=== PATIENT | female | born 1940 | race Caucasian/White ===

== ENCOUNTER 2021-08-24 12:45 | Observation (INO) | payer OTHER, SELFPAY ==
[2021-08-24] VITALS (10 sets, daily range): BP systolic 132–179; BP diastolic 53–74; PULSE 68–86; RESP 14–18; TEMP 36.1–36.8; O2SAT 95–98; BMI 29.0; BMI 28.2
--- NOTE | 2021-08-24 12:58 | EDS_ITS ---
HPI History of Present Illness Chief Complaint: Syncope Detail of Chief Complaint: Syncopal eating breakfast and lunch Informant: patient Onset/Context/Timing Onset: Today Context: Sudden Onset Timing: Intermittent Quality: Syncope with collapse Location: Place of employment Current Severity: Gone Maximum Severity: Patient had no prodrome or symptoms Relieved by: Nothing/not applicable Associated Symptoms Associated Symptoms: None Narrative Narrative: Patient is a healthy 80-year-old woman who was at work. She was eating breakfast this morning at work. She was in a seated position. She passed out. She denied chest pain, shortness of breath, nausea or diaphoresis. She denies black or maroon-colored stool. Patient states she sat to eat lunch. While eating lunch she passed out. Patient presently has no symptoms. She has no complaints. Prior similar symptoms: No Recent Illness/Hospitalization: No PFSH PFS Medical History (Updated 08/24/21 @ 14:[address] Hu Spears MD) Hypertension Medical History no medical history no medical history Allergy/AdvReac Type Severity Reaction Status Date / Time No Known Allergies Allergy Verified 08/24/21 12:48 Social History (Updated 08/24/21 @ 13:[address] Hu Spears MD) household members: other Smoking Status: Never smoker alcohol intake: never substance use type: does not use ROS ROS ED Constitutional Constitutional ED: Denies chills, fever(s), subjective, sweats or weight loss Eyes Eyes: Denies blurry vision, change in vision or diplopia ENT ENT ED: Denies ear pain, rhinorrhea or sore throat Cardiovascular Cardiovascular: Denies chest pain, palpitations or racing heartbeat Respiratory/Chest Respiratory/Chest: Denies cough, dyspnea or dyspnea on exertion Gastrointestinal Gastrointestinal: Denies abdominal pain, constipation, diarrhea, melena, nausea or vomiting Genitourinary Genitourinary ED: Denies dysuria, hematuria or urinary frequency Musculoskeletal Musculoskeletal: Denies arthralgias, back pain, myalgias or neck pain Integumentary Denies rash Neurologic Neurologic: Denies headache(s), paresthesias or weakness Psychiatric Psychiatric: Denies anxiety or depression Endocrine Endocrinology: Denies polydipsia, polyphagia or polyuria Hematologic/Lymphatic Hematologic/Lymphatic: Denies anemia, easy bleeding or easy bruising EXAM Physical Exam Const Vital Signs: 08/24/21 12:45 08/24/21 12:50 Temperature 98.1 F Temperature Source Oral Pulse Rate 68 69 Respiratory Rate 16 16 Blood Pressure 158/57 H 157/59 H Blood Pressure Mean 90 91 Pulse Ox 96 95 Oxygen Delivery Method Room Air Room Air Positive well nourished, well developed and obese General Appearance ED: well developed and NAD; Negative for cyanotic, diaphoretic or pallor Nutritional Appearance: obese HEENT Reports TM's clear and moist mucous membranes HEENT Narrative: Nares patent. Uvula midline. No angioedema. No erythema or exudate. Negative for trauma or tenderness Tympanic Membrane ED: Yes TM's clear Eyes PERRL and EOMs intact bilaterally General Eye ED: Negative for pale conjunctiva or scleral icterus Neck no lymphadenopathy, supple and no JVD Chest Wall inspection of chest normal and palpation of chest normal Resp normal respiratory effort and clear to auscultation bilaterally Cardio regular rate, regular rhythm, S1 normal heart sound, S2 normal heart sound and no murmurs GI normal to inspection, nondistended, normoactive bowel sounds, non-tender, non- distended and no masses Palpation: soft Back/Spine no CVA tenderness Cervical Spine: Negative for cervical spine tenderness Thoracic Spine / Upper Back: Negative for thoracic spinal tenderness or paraspinal muscle tenderness Extremity normal to inspection General Extremety ED: Negative for edema or tenderness General Extremity: Negative for edema Neuro oriented x3, CN's II-XII intact bilaterally and no sensory deficits noted Sensorium / Orientation: alert Motor Exam: strength 5/5 throughout Psych mental status grossly normal Skin no rashes or lesions noted and no wounds General Skin Exam: Negative for elasticity normal, jaundice or pallor MDM MDM MDM Narrative Medical decision making narrative: Ectopy unknown etiology. Will obtain EKG and appropriate blood work. Differential would be vasovagal, GI bleed, dysrhythmia, doubt MT. Doubt pneumothorax. Doubt pulmonary embolus Case was discussed with Dr. James Mora. Will discuss case with Dr. Villareal determine if patient should be monitored in-house versus Holter monitor. Case was discussed with Dr. Pierre Hansen. He recommends admission since she had to 6 episodes today. Lab Data Attestation: I reviewed the patient's lab results. Lab results narrative: CBC is unremarkable. Comprehensive metabolic panel is marked for creatinine of 1.26 with a GFR 44. First troponin is 4. 2-hour troponin is pending. Labs: Laboratory Results - last 24 hr 08/24/21 08/24/21 13:00 13:00 WBC 7.9 RBC 4.15 L Hgb 12.2 Hct 38.0 MCV 91.6 MCH 29.4 MCHC 32.1 RDW Std Deviation 45.6 H RDW Coeff of Madeline 13.5 Plt Count 238 MPV 10.0 Immature Gran % (Auto) 0.300 Neut % (Auto) 75.2 H Lymph % (Auto) 16.5 L [place] % (Auto) 7.4 Eos % (Auto) 0.3 Baso % (Auto) 0.3 Absolute Neuts (auto) 5.9 Absolute Lymphs (auto) 1.30 Nucleated RBC % 0 Sodium 140 Potassium 4.4 Chloride 109 H Carbon Dioxide 26.0 Anion Gap 5 BUN 33 H Creatinine 1.26 H Estim Creat Clear Calc 31.26 Est GFR (MDRD) Af Amer 53 L Est GFR (MDRD) Non-Af 44 L BUN/Creatinine Ratio 26.2 H Glucose 118 H Calcium 8.8 Total Bilirubin 0.40 AST 28 ALT 20 Alkaline Phosphatase 97 Troponin I High Sens 4 Total Protein 7.1 Albumin 3.6 Globulin 3.5 Albumin/Globulin Ratio 1.0 EKG Initial EKG: Attestation: I personally reviewed and interpreted this EKG as follows: Interpretation: Sinus Rhythm (The EKG is normal. Rate is 76. W[place] interval is 154 ms. Cures duration 82 ms. QT duration 418 ms. [place] is normal.) Discharge Plan Triage Chief Complaint: Syncope ED Provider: Hu Spears Dx/Rx/DC Orders Clinical Impression: Syncope and collapse, History of hypertension Primary Care Provider: Sushma Mas Referrals: Sushma Mas, [employer] [Primary Care Provider] - Disposition Disposition: Acute Care [facility]
--- NOTE | 2021-08-24 13:16 | EKG12_ITS ---
Test Reason : SYNCOPE Blood Pressure : / mmHG Vent. Rate : 069 BPM Atrial Rate : 069 BPM P-R Int : 164 ms QRS Dur : 082 ms QT Int : 418 ms P-R-T Axes : 050 012 -05 degrees QTc Int : 447 ms Normal sinus rhythm Normal ECG Confirmed by EVELYN GUTIERREZ, LISY ([id number]), editor continuity and script MYRTLE CHIN ([id number]) on 08/25/2021 11:09:56 AM Referred By: SAMARA Confirmed By:LISY RIVAS MD
[2021-08-24 13:20] LABS: Absolute Neutrophil Count 5.9 X10^3/uL (2.0-7.7); Basophil# 0.02 X10^3/uL; Basophil% 0.3 % (0-1); Eosinophil# 0.02 X10^3/uL; Eosinophils% 0.3 % (0-5); Hemoglobin 12.2 g/dL (12.0-15.0); Lymphocyte % 16.5 % (19-41); Mean Corp Hgb Conc 32.1 g/dL (32-36); Mean Corpuscular Hgb 29.4 pg (27.0-32.0); Mean Corpuscular Volume 91.6 fL (81-99); Monocyte# 0.58 X10^3/uL; Monocyte% 7.4 % (0-10); NRBC Flagged by Analyzer 0 % (0-5); Neutrophil # 5.93 X10^3/uL (2.7-7.7); Neutrophil % 75.2 % (47-70); Platelet Count 238 K/mm3 (150-450); RBC Distribution Width CV 13.5 % (11.6-14.6); RBC Distribution Width SD 45.6 fl (35.1-43.9); Red Blood Count 4.15 M/mm3 (4.2-5.4); White Blood Count 7.9 K/mm3 (4.4-11.0)
[2021-08-24 13:32] LABS: AST(SGOT) 28 U/L (15-37); Alanine Aminotransfer ALT/SGPT 20 U/L (13-56); Albumin, Serum 3.6 g/dL (3.2-5.0); Alkaline Phosphatase 97 U/L (45-117); Anion Gap 5 (5-15); BUN 33 mg/dL (7-18); BUN/Creat Ratio 26.2 RATIO (10-20); Calcium,Total 8.8 mg/dL (8.5-10.1); Chloride 109 mmol/L (98-107); Creatinine, Serum 1.26 mg/dL (0.55-1.02); EST Glomerular Filtration Rate 44 mL/min (>60); Est Glom Filt Rate - Afr Amer 53 mL/min (>60); Estimated Creatinine Clearance 31.26 ml/min; Globulin 3.5 g/dL (2.2-4.2); Glucose 118 mg/dL (74-106); Potassium 4.4 mmol/L (3.5-5.1); Protein, Total 7.1 g/dL (6.4-8.2); Sodium Level 140 mmol/L (136-145); Troponin-I HS 4 pg/mL (3.0-54.0)
--- NOTE | 2021-08-24 15:13 | HP.PCM.HOS_ITS ---
HPI - General General Date of Admission: 08/24/21 Date of Service: 08/24/21 Chief Complaint: syncope HPI Narrative MYRTLE FERMIN, is a 80 F who presents with syncopal episodes. Patient was eating breakfast around 7 AM and then had a single episode where she went completely out but came to. Then eating lunch again she had another syncopal episode. At that point time patient sought attention. Work-up in the emergency room was unremarkable. The emergency room reached out to me about evaluation. Recommended Holter monitor. I then reached out to cardiology who advised admission given that patient had 2 unprovoked syncopal attacks. Patient never had any symptoms of this before. No bowel or bladder incontinence. No prodrome. [facility] Medical History Hypertension Medical History no medical history no medical history Home Medications amlodipine 08/24/21 [History Last Taken Unknown] lisinopril 08/24/21 [History Last Taken Unknown] metoprolol tartrate 08/24/21 [History Last Taken Unknown] mirtazapine mg 08/24/21 [History Last Taken Unknown] olanzapine mg 08/24/21 [History Last Taken Unknown] Allergy/AdvReac Type Severity Reaction Status Date / Time No Known Allergies Allergy Verified 08/24/21 12:48 Social History household members: other Smoking Status: Never smoker alcohol intake: never substance use type: does not use ROS ROS Narrative All review of systems were negative except as mentioned above in the history of present illness and the other review of systems. Vital Signs Vital Signs Vital Signs: 08/24/21 12:45 08/24/21 12:50 08/24/21 13:00 Temperature 36.7 C Temperature Source Oral Pulse Rate 68 69 Respiratory Rate 16 16 Respiratory Effort Normal Non-Labored Respiratory Pattern Normal Blood Pressure 158/57 H 157/59 H Blood Pressure Mean 90 91 Pulse Ox 96 95 Oxygen Delivery Method Room Air Room Air 08/24/21 14:44 Temperature 36.7 C Temperature Source Oral Pulse Rate 79 Respiratory Rate 14 Respiratory Effort Respiratory Pattern Blood Pressure 168/66 H Blood Pressure Mean 100 Pulse Ox 97 Oxygen Delivery Method Room Air Weight Weight: 76.9 kg Body Mass Index (BMI) 29.0 Physical Exam Const alert General Appearance: cooperative HEENT normocephalic and head/scalp atraumatic Neck no lymphadenopathy Resp normal respiratory effort, no retractions, no use of accessory muscles and clear to auscultation bilaterally Cardio regular rate, regular rhythm, S1 normal heart sound and S2 normal heart sound GI normal to inspection, nondistended, normoactive bowel sounds, soft to palpation, non-tender and non-distended Extremity normal to inspection Skin no rashes or lesions noted Neuro oriented x3, CN's II-XII intact bilaterally, moves all extremities and no focal motor deficits Sensorium / Orientation: awake and alert Motor Exam: strength 5/5 throughout Results Lab / Micro Data Attestation: I reviewed the patient's lab results. Result Diagrams: 08/24/21 13:00 08/24/21 13:00 Labs: Laboratory Results - last 24 hr 08/24/21 13:00: WBC 7.9, RBC 4.15 L, Hgb 12.2, Hct 38.0, MCV 91.6, MCH 29.4, MCHC 32.1, RDW Std Deviation 45.6 H, RDW Coeff of Madeline 13.5, Plt Count 238, MPV 10.0, Immature Gran % (Auto) 0.300, Neut % (Auto) 75.2 H, Lymph % (Auto) 16.5 L, [place] % (Auto) 7.4, Eos % (Auto) 0.3, Baso % (Auto) 0.3, Absolute Neuts (auto) 5.9, Absolute Lymphs (auto) 1.30, Nucleated RBC % 0 08/24/21 13:00: Sodium 140, Potassium 4.4, Chloride 109 H, Carbon Dioxide 26.0, Anion Gap 5, BUN 33 H, Creatinine 1.26 H, Estim Creat Clear Calc 31.26, Est GFR (MDRD) Af Amer 53 L, Est GFR (MDRD) Non-Af 44 L, BUN/Creatinine Ratio 26.2 H, Glucose 118 H, Calcium 8.8, Total Bilirubin 0.40, AST 28, ALT 20, Alkaline Phosphatase 97, Troponin I High Sens 4, Total Protein 7.1, Albumin 3.6, Globulin 3.5, Albumin/Globulin Ratio 1.0 EKG Initial EKG: Attestation: I personally reviewed and interpreted this EKG as follows: Prior EKG tracings: available for review EKG Rhythm Intrepretation: Sinus Rhythm Assessment & Plan Assessment/Plan (1) Syncope and collapse: PLAN: 1. Syncope * Unprovoked * Favoring vasovagal but cannot rule out arrhythmia at present * Check carotid duplex. Did not hear any bruits but patient did have a duplex performed in 2017 that was negative at that time. * Check echocardiogram * Monitor on telemetry * Cardiology contacted through the emergency room and they will be consulted for any further recommendations 2. Insomnia * Is reported to me by the family that patient takes Zyprexa for insomnia * I told her that I have never heard that is a recommendation for insomnia * Zyprexa will be held because it can cause prolongation of the QT intervals Charges/Coding Visit Charges OBSV E&M: 31771 Initial observation care L2
[2021-08-24 15:23] LABS: Troponin-I HS (w/2H Reflex) 5 pg/mL (3.0-54.0)
--- NOTE | 2021-08-24 15:54 | ECHOD_ITS ---
Reason For Study: Syncope Procedure This was a 2D Doppler, Color Flow transthoracic echocardiogram. Exam performed portable in patient room. Left Ventricle Normal LV size. Moderate concentric left ventricular hypertrophy. Left ventricular systolic function is normal. The estimated ejection fraction is 60 %. Stage 1 diastolic dysfunction. No regional wall motion abnormalities noted. Right Ventricle Normal RV size. Normal systolic function. Atria Normal left atrium. Normal right atrium. Mitral Valve Normal mitral valve. Tricuspid Valve Normal tricuspid valve. Mild tricuspid valve insufficiency. Pulmonary artery systolic pressure is 22 mmHg. Aortic Valve Normal aortic valve. Trisinus/trileaflet aortic valve. Pulmonic Valve Normal pulmonic valve. Great Vessels Normal aortic root. The pulmonary artery is normal size. Normal inferior vena cava. Pericardium/Pleural No pericardial effusion. MMode/2D Measurements & Calculations LVIDd: 3.9 cm IVSd: 1.5 cm Ao root diam: 3.4 cm LVIDs: 2.7 cm LVPWd: 1.4 cm RVDd: 3.3 cm FS: 28.7 % LAV(MOD-bp): 48.3 ml LVAd ap4: 18.9 cm2 SV(MOD-sp4): 30.1 ml LAV(MOD-bp) Indexed: 26.5 ml/m2 LVLd ap4: 6.1 cm LAV(MOD-sp2): 48.3 ml EDV(MOD-sp4): 48.1 ml LAV(MOD-sp4): 47.2 ml EDV(sp4-el): 49.9 ml LVAs ap4: 10.3 cm2 LVLs ap4: 5.1 cm ESV(MOD-sp4): 18.0 ml ESV(sp4-el): 17.6 ml EF(MOD-sp4): 62.6 % EF(sp4-el): 64.6 % SV(sp4-el): 32.2 ml LA A4 area: 17.5 cm2 LA dimension(2D): 4.4 cm RA A4 area: 10.6 cm2 Doppler Measurements & Calculations MV E max fadi: 60.5 cm/sec Lat Peak E' Fadi: 3.7 cm/sec Med Peak E' Fadi: 4.9 cm/sec MV A max fadi: 90.3 cm/sec E/E' lat: 16.4 E/E' med: 12.3 MV E/A: 0.67 Ao V2 max: 126.1 cm/sec LV V1 max: 90.9 cm/sec PA V2 max: 104.0 cm/sec Ao max P.4 mmHg LV V1 max P.3 mmHg Ao V2 mean: 83.0 cm/sec Ao mean P.1 mmHg Ao V2 VTI: 26.5 cm TR max fadi: 238.0 cm/sec TR max P.7 mmHg ECHO/Echo Complete Interpretation Summary Normal LV size. Left ventricular systolic function is normal. The estimated ejection fraction is 60 %. Stage 1 diastolic dysfunction. Moderate concentric left ventricular hypertrophy. Pulmonary artery systolic pressure is 22 mmHg. Ordering Physician: James Butler Referring Physician: Sushma Mas Performed By: Beatris Abel, HOSSEIN, RVT
--- NOTE | 2021-08-24 15:54 | CDU_ITS ---
Reason For Study: syncope Rt. Velocities/BP Lt. Velocities/BP Prox CCA 76.0/14.7 cm/sec. Prox CCA 128.2/27.8 cm/sec. Mid CCA 82.5/17.3 cm/sec. Mid CCA 107.3/26.5 cm/sec. Dist CCA 79.9/18.6 cm/sec. Dist CCA 93.0/23.9 cm/sec. Prox ICA 71.8/13.3 cm/sec. Prox ICA 81.4/22.5 cm/sec. Mid ICA 60.5/20.0 cm/sec. Mid ICA 96.2/27.4 cm/sec. Dist ICA 104.7/30.6 cm/sec. Dist ICA 80.9/24.3 cm/sec. Rt. ICA/CCA = 1.3. Lt. ICA/CCA = .9. Prox ECA 187.2/13.8 cm/sec. Prox ECA 174.0/35.8 cm/sec. Rt. Vert. 97.4/20.6 cm/sec. Right Extracranial There is homogeneous, smooth atherosclerotic plaque noted in the right common carotid artery. There is heterogeneous, irregular atherosclerotic plaque noted in the right internal carotid artery. The right internal carotid artery is very tortuous. There is heterogeneous, irregular atherosclerotic plaque noted in the right external carotid artery. Antegrade flow is noted in the right vertebral artery. Left Extracranial There is intimal thickening but no significant atherosclerotic plaque noted in the left common carotid artery. There is heterogeneous, irregular atherosclerotic plaque noted in the left internal carotid artery. The left internal carotid artery is very tortuous. There is heterogeneous, irregular atherosclerotic plaque noted in the left external carotid artery. Flow could not be demonstrated in the left vertebral artery. Procedure Carotid Duplex 21255. This is a Carotid Duplex examination using B-mode, color flow and specral Doppler. The exam was diagnostic. Exam performed in department. VL/Carotid Duplex Ultrasound Interpretation Summary Irregular calcific plaque at the proximal right internal carotid artery with le ss than 50% stenosis Less than 50% stenosis right external carotid artery Minimal irregular plaque at the proximal left internal carotid artery with less than 50% stenosis Less than 50% stenosis left external carotid artery Patent and antegrade right vertebral artery Flow could not be demonstrated in the left vertebral artery. Findings are similar to her previous examination of February 19, 2017 however f low could be determined in the left vertebral at that setting. Ordering Physician: James Butler Performed By: Ryan Mariee RVT
[2021-08-24 17:05] LABS: Reflex Troponin-HS? (from REC) Y
[2021-08-24 20:07] LABS: Troponin-I HS 6 pg/mL (3.0-54.0)
--- NOTE | 2021-08-24 22:59 | NURSING ---
Daughter called around [phone] to get an update about pt and left a contact number to give a call back. I called the number provided to me twice, but no one answered. Will try to call again in the AM.
[2021-08-25 02:59] VITALS: PULSE 77
[2021-08-25 03:41] VITALS: BP 127/56; PULSE 81; RESP 18; TEMP 36.9; O2SAT 95
[2021-08-25 06:38] VITALS: PULSE 89
--- NOTE | 2021-08-25 07:52 | CON.PCM.CA_ITS ---
Assessment & Plan Assessment/Plan (1) Syncope and collapse: PLAN: Did have an episode of near syncope. It is not clear to me that she did have franky syncope. Her Holter monitor has not demonstrated any abnormalities thus far. Her blood work was suggestive of an elevated BUN and creatinine suggesting that she may have been mildly dehydrated. In addition she is on multiple medical therapy for hypertension. I would recommend an echocardiogram to assess her ventricular function if this is normal then I would suggest a 30-day event monitor. (2) History of hypertension: PLAN: I would like us to make some changes to her antihypertensive medication by reducing her metoprolol to 50 mg twice a day Continue lisinopril 20 mg a day Continue Norvasc 5 mg a day Continue to monitor her blood pressure. Thank you for allowing me to participate in the care of your patient. Please don't hesitate to call if any issues arise. HPI Consult Data Date of Consult: 08/25/21 HPI Narrative HPI Narrative: MYRTLE FERMIN, is a 80 F who presents emergency room after having 2 near syncopal spells. She says that is the first time that this is ever happened to her. The first time she was having breakfast when she thought she was going to pass out. She put her head on the table. She is not sure that she completely passed out. There was no chest pain and no prodrome no paroxysmal nocturnal dyspnea no pedal edema she has not had any long travel. The second time she had gone to work and also she was eating and then it happened again. Once again she had to put her head on the table. She presented to the emergency room was evaluated and her EKG demonstrated sinus rhythm. It was advised that she be admitted. Cardiac enzymes were noted to be normal. She does have a history of hypertension on 3 blood pressure medications. This morning she seems to be doing well. [facility] Medical History Anxiety Depression Hypertension Non-smoker Medical History no medical history Home Medications amlodipine [Norvasc] 5 mg PO DAILY 08/24/21 [History Last Taken Unknown] lisinopril [Zestril] 20 mg PO DAILY 08/24/21 [History Last Taken Unknown] metoprolol tartrate [Lopressor] 100 mg PO BID 08/24/21 [History Last Taken Unknown] mirtazapine [Remeron] 30 mg PO QHS 08/24/21 [History Last Taken 08/23/21] olanzapine [Zyprexa] 2.5 mg PO QHS 08/24/21 [History Last Taken 08/23/21] Allergy/AdvReac Type Severity Reaction Status Date / Time No Known Allergies Allergy Verified 08/24/21 12:48 Social History household members: other Smoking Status: Never smoker alcohol intake: never substance use type: does not use ROS Constitutional Constitutional: Denies fever(s) or weight loss Eyes Eyes: Reports systems reviewed and no addt'l complaints, except as documented ENT HEENT: Reports systems reviewed and no addt'l complaints, except as documented Cardiovascular Cardiovascular: Denies chest pain at rest, chest pain with activity, dyspnea at rest, dyspnea on exertion, edema, palpitations or paroxysmal nocturnal dyspnea Respiratory/Chest Respiratory/Chest: Denies dyspnea on exertion, productive cough, shortness of breath at rest or shortness of breath with exertion Gastrointestinal Gastrointestinal: Denies change in bowel habits, nausea, vomiting or weight changes Genitourinary Genitourinary: Denies difficulty urinating Musculoskeletal Musculoskeletal: Denies joint stiffness or muscle weakness Integumentary Integumentary: Denies lesions Neurologic Neurologic: Denies dizziness or syncope Psychiatric Psychiatric: Denies anxiety Endocrine Endocrinology: Denies excessive sweating or fatigue Hematologic/Lymphatic Hematologic/Lymphatic: Denies anemia Allergic/Immunologic Allergic/Immunologic: Denies seasonal rhinorrhea Physical Exam Const alert, oriented x3 and no apparent distress General Appearance: cooperative HEENT hearing grossly normal bilaterally Head and Scalp: atraumatic Eyes EOMs intact bilaterally Neck General: normal visual inspection Chest inspection of chest normal and palpation of chest normal Resp normal respiratory effort Auscultation: clear to auscultation bilaterally Cardio regular rate, regular rhythm, S1 normal heart sound and S2 normal heart sound Jugular Venous Distention: JVD GI normal to inspection, nondistended, normoactive bowel sounds Extremity normal capillary refill and no pedal edema Peripheral Pulses: Yes pulses 2+ throughout and femoral pulses present Skin no rashes or lesions noted Neuro oriented x3 and CN's II-XII intact bilaterally Psych Appearance: grossly normal and appropriate Risk Stratification Risk Stratification Applicable: No Objective Data Vital Signs: Vital Signs Temp Pulse Resp BP Pulse Ox 98.5 F 89 18 127/56 H 95 08/25/21 03:41 08/25/21 06:38 08/25/21 03:41 08/25/21 03:41 08/25/21 03:41 Oxygen Delivery Method Room Air Weight: 164 lb 7.437 oz Body Mass Index (BMI) 28.2 Lab / Micro Data Result Diagrams: 08/24/21 13:00 08/24/21 13:00 Labs: Laboratory Results - last 24 hr 08/24/21 13:00: WBC 7.9, RBC 4.15 L, Hgb 12.2, Hct 38.0, MCV 91.6, MCH 29.4, MCHC 32.1, RDW Std Deviation 45.6 H, RDW Coeff of Madeline 13.5, Plt Count 238, MPV 10.0, Immature Gran % (Auto) 0.300, Neut % (Auto) 75.2 H, Lymph % (Auto) 16.5 L, [place] % (Auto) 7.4, Eos % (Auto) 0.3, Baso % (Auto) 0.3, Absolute Neuts (auto) 5.9, Absolute Lymphs (auto) 1.30, Nucleated RBC % 0 08/24/21 13:00: Sodium 140, Potassium 4.4, Chloride 109 H, Carbon Dioxide 26.0, Anion Gap 5, BUN 33 H, Creatinine 1.26 H, Estim Creat Clear Calc 31.26, Est GFR (MDRD) Af Amer 53 L, Est GFR (MDRD) Non-Af 44 L, BUN/Creatinine Ratio 26.2 H, Glucose 118 H, Calcium 8.8, Total Bilirubin 0.40, AST 28, ALT 20, Alkaline Phosphatase 97, Troponin I High Sens 4, Total Protein 7.1, Albumin 3.6, Globulin 3.5, Albumin/Globulin Ratio 1.0 08/24/21 15:05: Troponin I High Sens 5 08/24/21 19:25: Troponin I High Sens 6 Cardiology Labs/Tests 08/24/21 13:00: WBC 7.9, RBC 4.15 L, Hgb 12.2, Hct 38.0, MCV 91.6, MCH 29.4, MCHC 32.1, Plt Count 238, MPV 10.0, Immature Gran % (Auto) 0.300, Neut % (Auto) 75.2 H, Lymph % (Auto) 16.5 L, [place] % (Auto) 7.4, Eos % (Auto) 0.3, Baso % (Auto) 0.3, Absolute Neuts (auto) 5.9, Nucleated RBC % 0 08/24/21 13:00: Sodium 140, Potassium 4.4, Chloride 109 H, Carbon Dioxide 26.0, Anion Gap 5, BUN 33 H, Creatinine 1.26 H, Est GFR (MDRD) Af Amer 53 L, Est GFR (MDRD) Non-Af 44 L, BUN/Creatinine Ratio 26.2 H, Glucose 118 H, Calcium 8.8, Total Bilirubin 0.40 Rhythm: EKG: ECHO: Stress Test: Cardiac Cath: PCI: CT Surgery: Holter monitor: EPS: PPM: CXR: Chest CT Scan:
--- NOTE | 2021-08-25 08:25 | PN.HOSP_ITS ---
Subjective Subjective No events overnight. Ate without issues. No further syncope. Objective Data Objective Data Vital Signs: Vital Signs Temp Pulse Resp BP Pulse Ox 36.9 C 89 18 127/56 H 95 08/25/21 03:41 08/25/21 06:38 08/25/21 03:41 08/25/21 03:41 08/25/21 03:41 Oxygen Delivery Method Room Air Weight: 74.6 kg Body Mass Index (BMI) 28.2 Lab / Micro Data Result Diagrams: 08/24/21 13:00 08/24/21 13:00 Labs: Laboratory Results - last 24 hr 08/24/21 13:00: WBC 7.9, RBC 4.15 L, Hgb 12.2, Hct 38.0, MCV 91.6, MCH 29.4, MCHC 32.1, RDW Std Deviation 45.6 H, RDW Coeff of Madeline 13.5, Plt Count 238, MPV 10.0, Immature Gran % (Auto) 0.300, Neut % (Auto) 75.2 H, Lymph % (Auto) 16.5 L, [place] % (Auto) 7.4, Eos % (Auto) 0.3, Baso % (Auto) 0.3, Absolute Neuts (auto) 5.9, Absolute Lymphs (auto) 1.30, Nucleated RBC % 0 08/24/21 13:00: Sodium 140, Potassium 4.4, Chloride 109 H, Carbon Dioxide 26.0, Anion Gap 5, BUN 33 H, Creatinine 1.26 H, Estim Creat Clear Calc 31.26, Est GFR (MDRD) Af Amer 53 L, Est GFR (MDRD) Non-Af 44 L, BUN/Creatinine Ratio 26.2 H, Gl ucose 118 H, Calcium 8.8, Total Bilirubin 0.40, AST 28, ALT 20, Alkaline Phosphatase 97, Troponin I High Sens 4, Total Protein 7.1, Albumin 3.6, Globulin 3.5, Albumin/Globulin Ratio 1.0 08/24/21 15:05: Troponin I High Sens 5 08/24/21 19:25: Troponin I High Sens 6 Physical Exam Const alert and no apparent distress Resp normal respiratory effort, no retractions and no use of accessory muscles Cardio regular rate, regular rhythm, S1 normal heart sound and S2 normal heart sound GI normal to inspection, nondistended, normoactive bowel sounds, soft to palpation, non-tender and non-distended Assessment & Plan Assessment/Plan (1) Syncope and collapse: PLAN: 1. Syncope * Unprovoked * Monitor on telemetry * Cardiology contacted through the emergency room and they will be consulted for any further recommendations * Orthostatic vital +, SBP dropped 179 to 148, but subsequent check was normal. * adjust BP meds: metoprolol 50 BID, then continue lisinopril 20 and amlodipine 5 as previous. * carotid duplex negative * echo pending. 2. Insomnia * Is reported to me by the family that patient takes Zyprexa for insomnia * I told her that I have never heard that is a recommendation for insomnia * Zyprexa will be held because it can cause prolongation of the QT intervals Charges/Coding Visit Charges OBSV E&M: 84087 Subsequent observation care L2
[2021-08-25 09:30] VITALS: BP 133/73; PULSE 81; RESP 18; TEMP 36.9; O2SAT 94
[2021-08-25] MEDS: Lisinopril 20 MG Tablet PO (09:32)
[2021-08-25 09:33] VITALS: PULSE 81
[2021-08-25] MEDS: Metoprolol Tartrate 50 MG Tablet PO (09:33)
[2021-08-25] MEDS: amLODIPine 5 MG Tablet PO (09:33)
--- NOTE | 2021-08-25 13:16 | DCINST_ITS ---
Discharge Instructions Diet Discharge Diet: No restrictions Activity Discharge Activity: Return to Normal Activity Dressing / Incision Call your doctor if you observe: Dizziness and - (unresponsiveness) Follow Up Care Test Results: Test results from this visit will be discussed in further detail at your follow-up appointment, if applicable. Discharge Plan Admission Admit Date/Time: 08/24/21 15:10 Primary Reason for Your Visit: syncope Attending Provider: James Butler Primary Care Provider: Sushma Mas Consulting Providers: Pierre Hansen Discharge Orders/Prescriptions Prescriptions: New metoprolol tartrate 50 mg Tablet 50 mg PO BID Qty: 60 RF: 0 melatonin 5 mg capsule 5 mg PO QHS PRN PRN (Reason: insomnia) Qty: 30 RF: 0 Continued lisinopril [Zestril] 20 mg tablet 20 mg PO DAILY RF: 0 amlodipine [Norvasc] 5 mg tablet 5 mg PO DAILY RF: 0 mirtazapine [Remeron] 30 mg tablet 30 mg PO QHS RF: 0 Discontinued metoprolol tartrate [Lopressor] 100 mg tablet 100 mg PO BID RF: 0 olanzapine [Zyprexa] 5 mg tablet 2.5 mg PO QHS RF: 0 Referrals / Follow Up: Sushma Mas, [employer] [Primary Care Provider] - Within 2 Weeks Disposition Disposition (needs filled in before D/C Order can be placed): Home, Self Care
--- NOTE | 2021-08-25 13:20 | DS.PCM_ITS ---
Providers Date of Admission: 08/24/21 Date of Discharge: 08/25/21 Primary Care Physician: MERCEDES Gandara Consultations 08/24/21 15:54 Consult: Cardiology Routine Consulting Provider: Pierre Hansen Reason for Consult: syncope EMERGENT Consult: No MD Notified: Yes Date Notified: 08/24/21 Time Notified: 15:16 Method of Notification: ED Physician Initiated Reason For Visit: SYNCOPE AND COLLAPSE X2 Diagnosis Discharge Diagnosis (1) Syncope and collapse: Status: Acute Code(s): R55 - Syncope and collapse Medications at Discharge Home Medications amlodipine [Norvasc] 5 mg PO DAILY 08/24/21 lisinopril [Zestril] 20 mg PO DAILY 08/24/21 mirtazapine [Remeron] 30 mg PO QHS 08/24/21 melatonin 5 mg PO QHS PRN PRN #30 cap 08/25/21 metoprolol tartrate 50 mg PO BID #60 tab 08/25/21 Hospital Course Operations None Procedures 2-D Echocardiogram Summary of Care Provided Minutes Spent on Discharge: 28 Hospital Course: 1. Syncope Unprovoked Monitor on telemetry Cardiology contacted through the emergency room and they will be consulted for any further recommendations Orthostatic vital +, SBP dropped 179 to 148, but subsequent check was normal. adjust BP meds: metoprolol 50 BID, then continue lisinopril 20 and amlodipine 5 as previous. carotid duplex negative echo unremarkable Patient will need a 30-day event monitor 2. Insomnia Is reported to me by the family that patient takes Zyprexa for insomnia I told her that I have never heard that is a recommendation for insomnia Zyprexa will be held because it can cause prolongation of the QT intervals Weight / BMI Weight Weight: 74.6 kg Body Mass Index (BMI) 28.2 ABG / Lab / Microbiology Data Result Diagrams: 08/24/21 13:00 08/24/21 13:00 Laboratory: Laboratory Results - last 24 hr 08/24/21 13:00: WBC 7.9, RBC 4.15 L, Hgb 12.2, Hct 38.0, MCV 91.6, MCH 29.4, MCHC 32.1, RDW Std Deviation 45.6 H, RDW Coeff of Madeline 13.5, Plt Count 238, MPV 10.0, Immature Gran % (Auto) 0.300, Neut % (Auto) 75.2 H, Lymph % (Auto) 16.5 L, [place] % (Auto) 7.4, Eos % (Auto) 0.3, Baso % (Auto) 0.3, Absolute Neuts (auto) 5.9, Absolute Lymphs (auto) 1.30, Nucleated RBC % 0 08/24/21 13:00: Sodium 140, Potassium 4.4, Chloride 109 H, Carbon Dioxide 26.0, Anion Gap 5, BUN 33 H, Creatinine 1.26 H, Estim Creat Clear Calc 31.26, Est GFR (MDRD) Af Amer 53 L, Est GFR (MDRD) Non-Af 44 L, BUN/Creatinine Ratio 26.2 H, Glucose 118 H, Calcium 8.8, Total Bilirubin 0.40, AST 28, ALT 20, Alkaline Phosphatase 97, Troponin I High Sens 4, Total Protein 7.1, Albumin 3.6, Globulin 3.5, Albumin/Globulin Ratio 1.0 08/24/21 15:05: Troponin I High Sens 5 08/24/21 19:25: Troponin I High Sens 6 Radiography Diagnostic Testing: Radiology Impression Carotid Duplex 08/24/21 15:54 Interpretation Summary Irregular calcific plaque at the proximal right internal carotid artery with less than 50% stenosis Less than 50% stenosis right external carotid artery Minimal irregular plaque at the proximal left internal carotid artery with less than 50% stenosis Less than 50% stenosis left external carotid artery Patent and antegrade right vertebral artery Flow could not be demonstrated in the left vertebral artery. Findings are similar to her previous examination of February 19, 2017 however flow could be determined in the left vertebral at that setting. Ordering Physician: James Butler Performed By: Ryan Mariee, RVT Echocardiogram 08/24/21 15:54 Interpretation Summary Normal LV size. Left ventricular systolic function is normal. The estimated ejection fraction is 60 %. Stage 1 diastolic dysfunction. Moderate concentric left ventricular hypertrophy. Pulmonary artery systolic pressure is 22 mmHg. Ordering Physician: James Butler Referring Physician: Sushma Mas Performed By: Beatris Abel RDCS, RVT D/C Instructions Discharge Diet: No restrictions Call your doctor if you observe: Dizziness and - (unresponsiveness) Meaningful Use Info Meaningful Use Diagnoses (Choose all that apply): None applicable Discharge Plan Admission Admit Date/Time: 08/24/21 15:10 Primary Reason for Your Visit: syncope Attending Provider: James Butler Primary Care Provider: Sushma Mas Consulting Providers: Pierre Hansen Discharge Orders/Prescriptions Prescriptions: New metoprolol tartrate 50 mg Tablet 50 mg PO BID Qty: 60 RF: 0 melatonin 5 mg capsule 5 mg PO QHS PRN PRN (Reason: insomnia) Qty: 30 RF: 0 Continued lisinopril [Zestril] 20 mg tablet 20 mg PO DAILY RF: 0 amlodipine [Norvasc] 5 mg tablet 5 mg PO DAILY RF: 0 mirtazapine [Remeron] 30 mg tablet 30 mg PO QHS RF: 0 Discontinued metoprolol tartrate [Lopressor] 100 mg tablet 100 mg PO BID RF: 0 olanzapine [Zyprexa] 5 mg tablet 2.5 mg PO QHS RF: 0 Referrals / Follow Up: Sushma Mas, [employer] [Primary Care Provider] - Within 2 Weeks Disposition Disposition (needs filled in before D/C Order can be placed): Home, Self Care Charges/Coding Visit Charges OBSV E&M: 01814 Observation care discharge
--- NOTE | 2021-08-25 13:27 | CASEMGMT ---
Pt lives alone with family close by and has been SBA in room only d/t syncopal episodes. Pt/daughter voice no concerns with going home at discharge. SStalin ALVARES CM
== END 2021-08-25 13:16 | disposition home or self-care (01) ==
LOC: ED 14:35 → PCU 16:18
PROVIDERS: Emergency Provider Emergency Medicine; PCP Nurse Practitioner Family
DX: R55 Syncope and collapse (principal); I10 Essential (primary) hypertension; Z79.899 Other long term (current) drug therapy; G47.00 Insomnia, unspecified; F41.9 Anxiety disorder, unspecified; F32.A Depression, unspecified
CPT/HCPCS: 36415; 80053; 84484; 85025; 93005; 93271; 93306; 93880; 99218; 99285; A4216; G0378

== ENCOUNTER → 2021-09-08 | Outpatient (CLI) | payer OTHER, SELFPAY | END | disposition home or self-care (01) | LOC: PSN 10:12 | PROVIDERS: PCP Nurse Practitioner Family; Referring Provider Internal Medicine Cardiovascular Disease; Visit Provider Internal Medicine Cardiovascular Disease | DX: R55 Syncope and collapse (principal) | CPT/HCPCS: 93225; 93226 ==